=== PATIENT | male | born 1940 | race Caucasian/White ===

== ENCOUNTER → 2020-04-19 | Outpatient (CLI) | payer OTHER, MEDICARE ==
[2020-04-19 15:28] LABS: BASOPHILS % (AUTO) 0.3 % (0.0-2.0); EOSINOPHILS # (AUTO) 0.1 K/uL (0.0-0.4); EOSINOPHILS % (AUTO) 1.4 % (0.0-4.0); HEMATOCRIT 38.8 % (36-54); LYMPHOCYTES # (AUTO) 1.5 K/uL (1.0-5.5); LYMPHOCYTES % (AUTO) 17.9 % (20.5-51.5); MEAN CORPUSCULAR HEMOGLOBIN 31 pg (27-31); MEAN CORPUSCULAR HGB CONC 33 % (32-36); MEAN CORPUSCULAR VOLUME 92 fL (79.0-98.0); MONOCYTES # (AUTO) 0.7 K/uL (0.0-1.0); MONOCYTES % (AUTO) 8.6 % (1.7-9.3); NEUTROPHILS # (AUTO) 6.2 K/uL (1.8-7.7); NEUTROPHILS % (AUTO) 71.8 % (40.0-70.0); PLATELET COUNT (AUTO) 265 K/uL (130-430); RED BLOOD CELL COUNT(AUTO) 4.23 MIL/uL (4.2-6.2); RED CELL DISTRIBUTION WIDTH 14.9 % (9.0-15.0); WHITE BLOOD COUNT (AUTO) 8.6 K/uL (4.8-10.8)
[2020-04-19 15:57] LABS: ANION GAP 9 (5-15); CALCIUM 9.4 mg/dL (8.4-11.0); CHLORIDE 104 mmol/L (98-107); CREATININE 0.96 mg/dL (0.55-1.30); GLUCOSE 128 mg/dL (70-99); POTASSIUM 3.6 mmol/L (3.5-5.1); SODIUM SERUM 144 mmol/L (136-145); UREA NITROGEN, BLOOD 12 mg/dL (8-21)
== END | disposition home or self-care (01) ==
LOC: SLB 13:32
DX: Z01.812 Encounter for preprocedural laboratory examination (principal); I83.893 Varicose veins of bilateral lower extremities with other complications
CPT/HCPCS: 36415; 80048; 85025

== ENCOUNTER 2020-09-06 14:33 | Outpatient (CLI) | payer OTHER, MEDICARE | END 2020-09-06 20:46 | disposition home or self-care (01) | LOC: SRD 14:33 | DX: R06.00 Dyspnea, unspecified (principal); I51.7 Cardiomegaly; I70.0 Atherosclerosis of aorta; Z95.0 Presence of cardiac pacemaker; M47.814 Spondylosis without myelopathy or radiculopathy, thoracic region | CPT/HCPCS: 71046-TC ==